=== PATIENT | female | born 1945 | race Caucasian/White ===

== ENCOUNTER 2018-09-13 19:42 | Inpatient (IN) | payer MEDICARE, OTHER ==
[~2018-09-13] VITALS: Ht 167.6 cm; Wt 74.3 kg
[~2018-09-13 19:42] MED LIST: AMLO5TAB9 PO; BENZ0.5T44 PO; OLAN10TA6 PO; OMEP20 PO; PREM625 PO
[2018-09-13] MEDS ORDERED: LISI-660 PO (20:16)
[2018-09-13] MEDS ORDERED: [UNRECOGNIZED DRUG - CODE] PO (20:16)
[2018-09-13] MEDS ORDERED: DOXY50CA2 PO (20:16)
[2018-09-13] MEDS ORDERED: DIVA250T4 PO (20:16)
[2018-09-13] MEDS ORDERED: GUAIFCF5L PO (20:16)
[2018-09-13] MEDS ORDERED: PANT20TA PO (20:16)
[2018-09-13] MEDS ORDERED: TOPI25 PO (20:16)
[2018-09-13] MEDS ORDERED: TRAZ-220 PO (20:16)
[2018-09-13] MEDS ORDERED: ACYC200C PO (20:18)
[2018-09-13 21:28] LABS: EOSINOPHILS % (AUTO) 2.7 % (1.0-6.0); HEMATOCRIT 31.9 % (36-46); HEMOGLOBIN 10.4 g/dL (12.0-16.0); LYMPHOCYTES # (AUTO) 1.6 K/uL (1.0-4.8); LYMPHOCYTES % (AUTO) 27.1 % (22.0-44.0); MEAN CORPUSCULAR HEMOGLOBIN 28.4 pg (26.0-34.0); MEAN CORPUSCULAR HGB CONC 32.7 G/dL (31.0-37.0); MEAN CORPUSCULAR VOLUME 87 fL (80-100); MONOCYTES # (AUTO) 0.4 K/uL (0.1-1.0); MONOCYTES % (AUTO) 7.4 % (2.0-9.0); NEUTROPHILS # (AUTO) 3.7 K/uL (1.8-7.7); NEUTROPHILS % (AUTO) 62.8 % (40.0-70.0); PLATELET COUNT (AUTO) 165 K/uL (150-450); RED BLOOD CELL COUNT(AUTO) 3.67 MIL/uL (4.00-5.20); RED CELL DISTRIBUTION WIDTH 14.7 % (11.5-14.5)
[2018-09-13 21:29] LABS: GLUCOSE,POINT OF CARE 120 MG/DL (70-110)
[2018-09-13 21:36] LABS: ANION GAP 9 mmol/L (8-16); CALCIUM, TOTAL 8.7 mg/dL (8.8-10.5); CARBON DIOXIDE 27 mmol/L (22-29); CHLORIDE 109 mmol/L (98-107); CREATININE 0.76 mg/dL (0.60-1.30); GLOMERULAR FILTR. RATE CALC > 60 mL/min (>60); GLUCOSE,RANDOM 93 mg/dL (70-110); POTASSIUM 3.5 mmol/L (3.5-5.1); SODIUM SERUM 145 mmol/L (136-145); UREA NITROGEN, BLOOD 8 mg/dL (7-18)
[2018-09-13 21:42] LABS: INR 0.9 (0.9-1.1); PROTHROMBIN TIME 9.8 SEC (9.4-11.6)
[2018-09-13 21:43] LABS: ALANINE AMINOTRANSFERASE 19 U/L (12-78); ALBUMIN 3.1 g/dL (3.4-5.0); ALKALINE PHOSPHATASE 122 U/L (46-116); ASPARTATE AMINOTRANSFERASE 13 U/L (15-37); BILIRUBIN,TOTAL 0.2 mg/dL (0.1-1.0); CREATINE KINASE, TOTAL ONLY 55 U/L (26-192); TOTAL PROTEIN, SERUM 5.6 g/dL (6.4-8.2)
[2018-09-13 22:17] LABS: APPEARANCE,URINE CLOUDY (CLEAR); BILIRUBIN,URINE NEGATIVE (NEGATIVE); GLUCOSE, URINE (UA) NEGATIVE (NEGATIVE); KETONES,URINE NEGATIVE (NEGATIVE); LEUKOCYTE ESTERASE ,URINE LARGE (NEGATIVE); NITRATE,URINE NEGATIVE (NEGATIVE); OCCULT BLOOD,URINE LARGE (NEGATIVE); PROTEIN,URINE TRACE (NEGATIVE); UROBILINOGEN,URINE 0.2 mg/dL (<=1.0)
[2018-09-13 22:24] LABS: VALPROIC ACID < 3 mcg/mL (50-100)
[2018-09-13 22:26] LABS: RBC,URINE 51-100 /HPF (0-2); WBC,URINE 51-100 /HPF (0-5)
[2018-09-13 22:27] LABS: BACTERIA,URINE Few /HPF (None Seen); SQUAMOUS EPITHELIAL CELL,UR Few /LPF (None Seen)
[2018-09-13 22:28] LABS: AMPHET/METH SCREEN,URINE POSITIVE (NEGATIVE); BARBITURATE SCREEN, URINE NEGATIVE (NEGATIVE); BENZODIAZEPINES SCREEN,URINE POSITIVE (NEGATIVE); CANNABINOID SCREEN,URINE NEGATIVE (NEGATIVE); COCAINE SCREEN,URINE NEGATIVE (NEGATIVE); METHADONE SCREEN, URINE NEGATIVE (NEGATIVE); OPIATE SCREEN,URINE NEGATIVE (NEGATIVE); PHENCYCLIDINE SCREEN,URINE NEGATIVE (NEGATIVE)
[2018-09-13] MEDS ORDERED: CefTRIAXone 1 GM/DEXTROSE 50 ML IV ONE (22:45)
[2018-09-13] MEDS ORDERED: ONDANSETRON HCL 4 MG/2 ML VIAL IVP PRN (23:30)
[2018-09-13] MEDS ORDERED: SODIUM CHLORIDE 0.9% 1,000 ML IV ONE (23:30)
[2018-09-13] MEDS ORDERED: 0.9% SODIUM CHLORIDE 10 ML SYRINGE IVP PRN (23:30)
[2018-09-14 02:12] VITALS: BP 137/92
[2018-09-14 04:17] VITALS: BP 124/80
[2018-09-14 06:47] LABS: ALANINE AMINOTRANSFERASE 13 U/L (12-78); ALBUMIN 2.5 g/dL (3.4-5.0); ALKALINE PHOSPHATASE 92 U/L (46-116); ANION GAP 7 mmol/L (8-16); ASPARTATE AMINOTRANSFERASE 15 U/L (15-37); BILIRUBIN,TOTAL 0.2 mg/dL (0.1-1.0); CALCIUM, TOTAL 8.3 mg/dL (8.8-10.5); CARBON DIOXIDE 26 mmol/L (22-29); CHLORIDE 112 mmol/L (98-107); CREATININE 0.69 mg/dL (0.60-1.30); GLOMERULAR FILTR. RATE CALC > 60 mL/min (>60); GLUCOSE,RANDOM 81 mg/dL (70-110); POTASSIUM 3.6 mmol/L (3.5-5.1); SODIUM SERUM 145 mmol/L (136-145); TOTAL PROTEIN, SERUM 5.2 g/dL (6.4-8.2); UREA NITROGEN, BLOOD 6 mg/dL (7-18)
[2018-09-14 07:16] LABS: BASOPHILS % (AUTO) 0.1 % (0.0-2.0); EOSINOPHILS % (AUTO) 3.2 % (1.0-6.0); HEMATOCRIT 31.2 % (36-46); HEMOGLOBIN 10.3 g/dL (12.0-16.0); LYMPHOCYTES # (AUTO) 1.6 K/uL (1.0-4.8); LYMPHOCYTES % (AUTO) 38.7 % (22.0-44.0); MEAN CORPUSCULAR HEMOGLOBIN 28.8 pg (26.0-34.0); MEAN CORPUSCULAR HGB CONC 32.9 G/dL (31.0-37.0); MEAN CORPUSCULAR VOLUME 88 fL (80-100); MONOCYTES # (AUTO) 0.3 K/uL (0.1-1.0); MONOCYTES % (AUTO) 8.6 % (2.0-9.0); NEUTROPHILS % (AUTO) 49.4 % (40.0-70.0); PLATELET COUNT (AUTO) 135 K/uL (150-450); RED BLOOD CELL COUNT(AUTO) 3.56 MIL/uL (4.00-5.20); RED CELL DISTRIBUTION WIDTH 14.8 % (11.5-14.5)
[2018-09-14 07:47] VITALS: BP 138/81
[2018-09-14 11:58] VITALS: BP 132/90
[2018-09-14] MEDS ORDERED: MAGNESIUM HYDROXIDE SUSPENSION 30 ML UDCUP PO PRN (14:30)
[2018-09-14] MEDS ORDERED: IPRATROPIUM BROMIDE 0.5 MG/2.5 ML NEB SOLUTION NEB PRN (14:30)
[2018-09-14] MEDS ORDERED: BISACODYL 10 MG RECTAL RECTAL SUPPOSITORY PR PRN (14:30)
[2018-09-14] MEDS ORDERED: ZOLPIDEM TARTRATE 5 MG TABLET PO PRN (14:30)
[2018-09-14] MEDS ORDERED: ALBUTEROL SULFATE 2.5 MG/0.5 ML NEB SOLUTION NEB PRN (14:30)
[2018-09-14] MEDS ORDERED: ONDANSETRON HCL 4 MG/2 ML VIAL IVP PRN (14:30)
[2018-09-14 15:52] VITALS: BP 140/96
[2018-09-14] MEDS ORDERED: SODIUM CHLORIDE 0.9% 250 ML IV ONE (20:31)
[2018-09-14 20:40] VITALS: BP 143/91
[2018-09-14] MEDS: OLANZapine 10 MG RAPDIS TABLET PO SCH (20:46)
[2018-09-14] MEDS: DIVALPROEX SODIUM 500 MG DR TABLET PO SCH (20:46)
[2018-09-14] MEDS: ESTROGENS,CONJUGATED 0.625 MG TABLET PO SCH (20:46)
[2018-09-14] MEDS: BENZTROPINE MESYLATE 0.5 MG TABLET PO SCH (20:46)
[2018-09-14] MEDS: TraZODone HCL 100 MG TABLET PO SCH (20:46)
[2018-09-14] MEDS: CefTRIAXone 1 GM/DEXTROSE 50 ML IV SCH (20:47)
[2018-09-15] VITALS (8 sets, daily range): BP systolic 115–148; BP diastolic 72–95
[2018-09-15 05:35] LABS: HEMOGLOBIN A1C 5.5 % (4.5-6.2)
[2018-09-15 05:47] LABS: AMMONIA 57 umol/L (11-32)
[2018-09-15 05:48] LABS: TROPONIN I < 0.02 ng/mL (0.00-0.05)
[2018-09-15 05:55] LABS: ANION GAP 7 mmol/L (8-16); CALCIUM, TOTAL 8.7 mg/dL (8.8-10.5); CARBON DIOXIDE 28 mmol/L (22-29); CHLORIDE 107 mmol/L (98-107); CHOL/HDL RATIO 3.1 (3.9-5.7); CHOLESTEROL 107 mg/dL (131-200); CREATINE KINASE, TOTAL ONLY 25 U/L (26-192); CREATININE 0.79 mg/dL (0.60-1.30); FREE T4 (FREE THYROXINE) 1.09 ng/dL (0.76-1.46); GLOMERULAR FILTR. RATE CALC > 60 mL/min (>60); GLUCOSE,RANDOM 90 mg/dL (70-110); HDL CHOLESTEROL 34 mg/dL (40-60); LDL CHOL (CALC.) 53 mg/dL (0-130); SODIUM SERUM 142 mmol/L (136-145); THYROID STIMULATING HORMONE 2.05 uIU/mL (0.36-3.74); TRIGLYCERIDES 99 mg/dL (15-150); UREA NITROGEN, BLOOD 8 mg/dL (7-18)
[2018-09-15] MEDS: BENZTROPINE MESYLATE 0.5 MG TABLET PO SCH ×2 (08:33→20:03)
[2018-09-15] MEDS: AmLODIPine BESYLATE 5 MG TABLET PO SCH (08:34)
[2018-09-15] MEDS: DIVALPROEX SODIUM 500 MG DR TABLET PO SCH ×2 (08:34→20:03)
[2018-09-15] MEDS: OMEPRAZOLE 20 MG CAPSULE PO SCH (08:34)
[2018-09-15] MEDS: LISINOPRIL 5 MG TABLET PO SCH (08:34)
[2018-09-15] MEDS: ENOXAPARIN SODIUM 40 MG/0.4 ML PF SYRINGE SQ SCH (08:41)
[2018-09-15] MEDS ORDERED: MAGNESIUM SULFATE 4 GM/WATER 100 ML IV PRN (12:00)
[2018-09-15] MEDS ORDERED: MAGNESIUM OXIDE 400 MG TABLET PO PRN (12:00)
[2018-09-15] MEDS ORDERED: MAGNESIUM SULFATE 2 GM/WATER 50 ML IV PRN (12:00)
[2018-09-15 12:49] LABS: ALBUMIN 2.7 g/dL (3.4-5.0)
[2018-09-15] MEDS: ACETAMINOPHEN 325 MG TABLET PO PRN ×2 (13:53→20:03)
[2018-09-15] MEDS: TraZODone HCL 100 MG TABLET PO SCH (20:03)
[2018-09-15] MEDS: OLANZapine 10 MG RAPDIS TABLET PO SCH (20:03)
[2018-09-15] MEDS: ESTROGENS,CONJUGATED 0.625 MG TABLET PO SCH (20:07)
[2018-09-15] MEDS ORDERED: SODIUM CHLORIDE 0.9% 250 ML IV ONE (20:52)
[2018-09-15] MEDS: CefTRIAXone 1 GM/DEXTROSE 50 ML IV SCH (21:32)
[2018-09-16 04:24] VITALS: BP 133/84
[2018-09-16 04:58] LABS: HIV 1-2 SCREEN 4TH GEN W/RFLX Non Reactive (Non Reactive)
[2018-09-16 05:35] LABS: ANION GAP 7 mmol/L (8-16); CALCIUM, TOTAL 8.6 mg/dL (8.8-10.5); CARBON DIOXIDE 28 mmol/L (22-29); CHLORIDE 108 mmol/L (98-107); CREATININE 0.76 mg/dL (0.60-1.30); GLOMERULAR FILTR. RATE CALC > 60 mL/min (>60); GLUCOSE,RANDOM 85 mg/dL (70-110); POTASSIUM 3.8 mmol/L (3.5-5.1); SODIUM SERUM 143 mmol/L (136-145); UREA NITROGEN, BLOOD 8 mg/dL (7-18)
[2018-09-16] MEDS: ACETAMINOPHEN 325 MG TABLET PO PRN (06:53)
[2018-09-16 07:18] VITALS: BP 109/70
[2018-09-16] MEDS: AmLODIPine BESYLATE 5 MG TABLET PO SCH (08:20)
[2018-09-16] MEDS: LISINOPRIL 5 MG TABLET PO SCH (08:46)
[2018-09-16] MEDS: BENZTROPINE MESYLATE 0.5 MG TABLET PO SCH (08:46)
[2018-09-16] MEDS: ENOXAPARIN SODIUM 40 MG/0.4 ML PF SYRINGE SQ SCH ×2 (08:46→08:50)
[2018-09-16] MEDS: DIVALPROEX SODIUM 500 MG DR TABLET PO SCH (08:46)
[2018-09-16] MEDS: OMEPRAZOLE 20 MG CAPSULE PO SCH (08:46)
[2018-09-16 11:55] VITALS: BP 121/69
[2018-09-16] MEDS ORDERED: BENZ0.5T44 PO (12:35)
[2018-09-16] MEDS ORDERED: LEVO500 PO (12:37)
[2018-09-16 16:36] VITALS: BP 135/85
[2018-09-16 16:57] VITALS: BP 134/75
== END 2018-09-16 17:10 | disposition home or self-care (01) | DRG 917 ==
LOC: EMS 19:44 → 5S 23:00 → 6N 09-15 18:20
PROVIDERS: ADMIT Internal Medicine Geriatric Medicine; ATTEND Internal Medicine Geriatric Medicine
DX: T43.621A Poisoning by amphetamines, accidental (unintentional), initial encounter (principal); G92 Toxic encephalopathy; N39.0 Urinary tract infection, site not specified; D61.818 Other pancytopenia; J44.9 Chronic obstructive pulmonary disease, unspecified; I10 Essential (primary) hypertension; F25.9 Schizoaffective disorder, unspecified; D69.6 Thrombocytopenia, unspecified; E83.42 Hypomagnesemia; Z77.22 Contact with and (suspected) exposure to environmental tobacco smoke (acute) (chronic); E83.51 Hypocalcemia; E88.09 Other disorders of plasma-protein metabolism, not elsewhere classified; F15.10 Other stimulant abuse, uncomplicated; K21.9 Gastro-esophageal reflux disease without esophagitis; Z85.828 Personal history of other malignant neoplasm of skin; Z91.19 Patient's noncompliance with other medical treatment and regimen; Z59.0 Homelessness; Z79.899 Other long term (current) drug therapy; Z90.89 Acquired absence of other organs; Z98.51 Tubal ligation status; Y92.89 Other specified places as the place of occurrence of the external cause
CPT/HCPCS: 51702; 70450; 80074; 83036; 83605; 83735; 84439; 84443; 87040; 87086; 87389; 93005; 93306; 99291; J0696; J1650; J2405; J3475; J7030; J7050